=== PATIENT | female | born 1970 | race Caucasian/White ===

== ENCOUNTER 2017-05-27 18:56 | Emergency (ER) | payer MEDICAID, OTHER ==
[~2017-05-27] VITALS: Ht 152.4 cm; Wt 81.6 kg
[~2017-05-27 18:56] MED LIST: ALBU0.0939 IH; IBUP-974 PO; MULT1SGL58 PO; PRON IH
[2017-05-27 19:00] VITALS: BP 142/92
--- NOTE | 2017-05-27 19:12 | NUR ---
PT TAKEN TO BED 3
--- NOTE | 2017-05-27 19:15 | NUR ---
47/F CAME IN W C/O RUE NUMBNESS, TINGLING AND THROBBING PAIN X YESTERDAY MORNING, PT DENIES TRAUMA/INJURY. PT HAS HX OF CVA WITH RT SIDED RESIDUAL WEAKNESS. 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 GCS 15, AOX4, TONGUE MIDLINE, NO FACIAL DEFICITS. PMH: CVA (2016), LUNG AVM, ASTHMA, RX: PULMICORT Addendum: 05/27/17 at 4 by DAVONTE LAURA MADE AWARE
[2017-05-27] MEDS ORDERED: ALBUTEROL SULFATE/IPRATROPIU 3 ML SOL IH ONE (19:50)
[2017-05-27] MEDS ORDERED: methylPREDNISolone SS 125 MG in WATER STERILE 2 ML IM ONE (19:50)
[2017-05-27 20:08] LABS: APPEARANCE,URINE CLEAR (CLEAR); BILIRUBIN,URINE NEGATIVE (NEGATIVE); BLOOD, URINE NEGATIVE (NEGATIVE); COLOR,URINE YELLOW (YELLOW); LEUKOCYTE ESTERASE ,URINE NEGATIVE (NEGATIVE); NITRITE, URINE NEGATIVE (NEGATIVE); PH,URINE 5.5 (5.0-9.0); UGLUCOSE NEGATIVE (NEGATIVE)
--- NOTE | 2017-05-27 20:20 | NUR ---
PT RETURN FROM RADIOLOGY
[2017-05-27 21:16] LABS: BASOPHILS # (AUTO) 0.2 K/uL (0.00-0.22); BASOPHILS % (AUTO) 2.1 % (0.0-2.0); EOSINOPHILS # (AUTO) 0.4 K/uL (0-0.4); HEMATOCRIT 40.7 % (36-48); HEMOGLOBIN 13.5 g/dL (12.0-16.0); LYMPHOCYTES # (AUTO) 2.6 K/uL (2.5-16.5); LYMPHOCYTES % (AUTO) 26.5 % (20.5-51.1); MEAN CORPUSCULAR HEMOGLOBIN 30 pg (27-31); MEAN CORPUSCULAR HGB CONC 33 g/dL (33-37); MEAN CORPUSCULAR VOLUME 90 fL (80-94); MONOCYTES # (AUTO) 0.9 K/uL (0.8-1.0); MONOCYTES % (AUTO) 9.2 % (1.7-9.3); NEUTROPHILS # (AUTO) 5.6 K/uL (1.8-7.7); NEUTROPHILS % (AUTO) 58.2 % (42.2-75.2); PLATELET COUNT (AUTO) 308 K/uL (140-450); RED BLOOD CELL COUNT(AUTO) 4.54 MIL/uL (4.20-5.40); RED CELL DISTRIBUTION WIDTH 12.6 % (11.6-13.7); WHITE BLOOD COUNT (AUTO) 9.7 K/uL (4.8-10.8)
[2017-05-27 21:41] LABS: ANION GAP 16.3 (8-16); CARBON DIOXIDE 25.7 mmol/L (21-32); CREATININE 0.9 mg/dL (0.6-1.3)
[2017-05-27 21:48] LABS: ALBUMIN 3.7 g/dL (3.4-5.0); TOTAL BILIRUBIN 0.2 mg/dL (0.0-1.0)
--- NOTE | 2017-05-27 22:15 | NUR ---
Patient discharged with v/s stable. Written and verbal after care instructions given and explained. Patient alert, oriented and verbalized understanding of instructions. Ambulatory with steady gait. All questions addressed prior to discharge. ID band removed. Patient advised to follow up with PMD. Rx of CODEINE/PROMETHAZINE, TRAMADOL, PREDNISONE, ALBUTEROL INH given. Patient educated on indication of medication including possible reaction and side effects. Opportunity to ask questions provided and answered.
[2017-05-27 22:19] VITALS: BP 134/76
== END 2017-05-27 22:15 | disposition home or self-care (01) ==
LOC: MED 18:56
DX: J45.901 Unspecified asthma with (acute) exacerbation (principal); M54.12 Radiculopathy, cervical region; Z88.8 Allergy status to other drugs, medicaments and biological substances; Z86.73 Personal history of transient ischemic attack (TIA), and cerebral infarction without residual deficits
CPT/HCPCS: 36415; 70450; 71046; 80053; 81003; 81025; 83880; 84484; 85025; 93005; 94640; 94760; 96372; 99285; J2930; J7620